=== PATIENT | female | born 2000 | race African-American/Black ===

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

== ENCOUNTER 2018-03-31 00:06 | Emergency (ER) | payer OTHER ==
[~2018-03-31] VITALS: Ht 160 cm; Wt 104.3 kg
[2018-03-31 00:08] VITALS: BP 121/68
[2018-03-31 01:01] LABS: APPEARANCE,URINE CLOUDY (CLEAR); BILIRUBIN,URINE NEGATIVE (NEGATIVE); BLOOD, URINE 2+ Ery/uL (NEGATIVE); COLOR,URINE YELLOW (YELLOW); KETONES,URINE NEGATIVE (NEGATIVE); LEUKOCYTE ESTERASE ,URINE 1+ (NEGATIVE); NITRITE, URINE NEGATIVE (NEGATIVE); PH,URINE 6.5 (5.0-8.0); PROTEIN,URINE 1+ mg/dl (NEGATIVE); UGLUCOSE NEGATIVE (NEGATIVE); UROBILINOGEN,URINE 0.2 EU/dL (0.2)
[2018-03-31 01:13] LABS: BACTERIA,URINE Moderate /HPF (None Seen); SQUAMOUS EPITHELIAL CELL,UR Few /HPF (None Seen); WBC,URINE 51-80 /HPF (0-3)
[2018-03-31] MEDS ORDERED: NITROFURANTOIN/NITROFURAN MAC 100 MG CAPSULE ONE (01:49)
[2018-03-31] MEDS ORDERED: PHENAZOPYRIDINE HCL 200 MG TABLET ONE (01:49)
[2018-03-31] MEDS ORDERED: NITROFURANTOIN/NITROFURAN MAC 100 MG CAPSULE PO ONE (02:00)
[2018-03-31] MEDS ORDERED: PHENAZOPYRIDINE HCL 200 MG TABLET PO ONE (02:00)
== END 2018-03-31 01:52 | disposition home or self-care (01) ==
LOC: ER 00:08
DX: N30.80 Other cystitis without hematuria (principal); N92.6 Irregular menstruation, unspecified
CPT/HCPCS: 81000-TC; 84703-TC; 87086-TC; 87186-TC; Z7610

== ENCOUNTER 2018-12-20 15:13 | Emergency (ER) | payer OTHER ==
[~2018-12-20] VITALS: Ht 160 cm; Wt 104.3 kg
[2018-12-20 15:15] VITALS: BP 151/94
== END 2018-12-20 15:51 | disposition home or self-care (01) ==
LOC: ER 15:13
DX: H66.92 Otitis media, unspecified, left ear (principal)